=== PATIENT | male | born 1995 | race Two or more races ===

== ENCOUNTER 2021-10-04 01:01 | Emergency (ER) | payer OTHER ==
[~2021-10-04] VITALS: Ht 172.7 cm; Wt 83.9 kg
[2021-10-04 02:21] LABS: MEAN CORPUSCULAR HEMOGLOBIN 30.9 uug (23.8-33.4); MEAN CORPUSCULAR VOLUME 89.1 fL (73.0-96.2); PLATELET COUNT (AUTO) 208 K/uL (152-348)
[2021-10-04 02:28] LABS: CREATININE 1.2 mg/dL (0.6-1.3); POTASSIUM 4.1 mmol/L (3.5-5.1)
[2021-10-04 02:34] LABS: BILIRUBIN,DIRECT 0.1 mg/dL (0.0-0.2); BILIRUBIN,TOTAL 0.3 mg/dL (0.2-1.0); TOTAL PROTEIN, SERUM 7.5 g/dL (6.4-8.2)
[2021-10-04] MEDS ORDERED: OXYC-128 PO (03:03)
--- NOTE | 2021-10-04 03:13 | NUR ---
Patient discharged to home in stable condition. Written and verbal after care instructions given. Patient verbalizes understanding of instructions. Stressed follow up or return to ER for worsening s/s. Patient out of ER with steady gait, no acute signs of distress, VSS, all belongings taken.
[2021-10-04 03:14] VITALS: BP 140/80
== END 2021-10-04 03:14 | disposition home or self-care (01) ==
LOC: ER 01:03
DX: B08.4 Enteroviral vesicular stomatitis with exanthem (principal); R03.0 Elevated blood-pressure reading, without diagnosis of hypertension
CPT/HCPCS: 36415; 83735; 85025; 85651; 86658; A4663